=== PATIENT | female | born 1980 | race Caucasian/White ===

== ENCOUNTER 2024-10-17 14:44 | Emergency (ER) | payer OTHER, SELFPAY ==
[2024-10-17 14:57] VITALS: BP 121/76; PULSE 100; RESP 14; TEMP 36.7; O2SAT 100; BMI 29.2
[2024-10-17 15:46] LABS: Add Urine Microscopic? NO
[2024-10-17 15:49] LABS: Basophils # 0.1 10^3/uL (0.0-0.1); Basophils % 0.6 %; Eosinophils # 0.1 10^3/uL (0.0-0.8); Eosinophils % 1.2 %; Hematocrit 40.8 % (36-47); Lymphocytes # 1.8 10^3/uL (0.8-4.8); Lymphocytes % 18.3 %; Mean Corpuscular HGB Conc 33.6 g/dL (30-55); Mean Corpuscular Hemoglobin 29.8 pg (27-33); Mean Corpuscular Volume 88.7 fl (85-98); Mean Platelet Volume 10.5 fL (7.4-10.4); Monocytes % 10.4 %; Neutrophils # 6.84 10^3/uL (1.8-7.7); Neutrophils % 68.2 %; Nucleated Red Blood Cells % 0 %; Platelet Count 367 10^3/cmm (157-399); Red Cell Distribution Width 12.7 % (12.1-15.1); White Blood Count 10.02 10^3/uL (3.29-11.43)
[2024-10-17 15:52] LABS: HCG, Serum Qual Negative (Negative)
[2024-10-17 15:55] LABS: Add Urine Culture? No; Bilirubin Urine Neg (Negative); Blood Urine Neg (Negative); Glucose Urine UA Norm (Normal); Ketones Urine Negative (Negative); Leukocyte Esterase Urine Negative (Negative); Nitrate Urine Negative (Negative); Protein Urine Neg (Negative); Specific Gravity, Urine 1.024 (1.005-1.030); Urine Appearance Clear (CLEAR); Urine Color Yellow (Yellow)
[2024-10-17 15:56] LABS: Charge for UA Resulting for Rev
[2024-10-17 15:58] LABS: Alanine Aminotransferase 41 U/L (0-33); Albumin Level 4.2 g/dL (3.5-5.2); Alkaline Phosphatase 77 U/L (35-105); Anion Gap 13.9 (5-19); Aspartate Amino Transferase 36 U/L (0-32); Blood Urea Nitrogen 8 mg/dL (6-20); Calcium 9.1 mg/dL (8.5-10.5); Carbon Dioxide 27 mmol/L (22-29); Chloride 100 mmol/L (98-107); Creatinine Clr Calc Pharmacy 136.7277; Globulin 3.5 g/dL (1.3-4.6); Glomerular Filtration Rate 135.3 mL/min (90-130); Glucose 97 mg/dL (65-115); Lipase 22 U/L (13-60); Osmolality Calculated 282 mOsm/kg (285-295); Potassium 3.9 mmol/L (3.5-5.1); Sodium 137 mmol/L (136-145); Total Bilirubin 0.3 mg/dL (0.15-1.2); Total Protein 7.7 g/dL (6.6-8.7)
--- NOTE | 2024-10-17 16:04 | ED_ITS ---
HPI - Abdominal Pain 2 General: Chief Complaint: Abdominal Pain Stated Complaint: abd pain Time Seen by Provider: 10/17/24 15:29 History of Present Illness: 44-year-old female presents emergency ro om complaining of abdominal pain that began last night is worsened throughout the day. She relates also it is periumbilical. It is worse when she is standing she also notices she has some mild discomfort with urination she did not notice any hematuria or or specific dysuria but the abdominal pain worsens. She also has worsening abdominal pain with any attempted bowel movement or flatus. She previously had a hysterectomy and appendectomy. She had some intravascular coils placed for problems with her ovaries. She is also noted onset of diarrhea for the last 3 to 4 days. She has not had any bloody diarrhea. No recent antibiotics. Associated Symptoms: Reports diarrhea; Denies chills, dysuria and fever(s) Related Data Previous Rx's ?Medication ?Instructions ?Recorded hydrocodone 5 mg-acetaminophen 325 1 tab PO Q6H PRN pa in #10 tabs 10/17/24 mg tablet promethazine 25 mg tablet 25 mg PO Q6H PRN nausea and 10/17/24 vomiting #20 tabs Allergies Allergy/AdvReac Type Severity Reaction Status Date / Time doxycycline Allergy ALGY-Hives Verified 10/17/24 15:01 Penicillins Allergy ALGY-Hives Verified 10/17/24 15:01 tramadol Allergy ADR-Vomitin Verified 10/17/24 15:01 g Review of Systems 2 Const: Denies: fever(s) or chills Card: Denies: chest pain Resp: Denies: dyspnea GI: Reports: diarrhea; Denies: abdominal pain : Denies: dysuria, urinary frequency or urinary urgency Musc: Denies: neck pain or back pain Skin/Breast: Denies: rash Physical Exam 2 Const: GENERAL APPEARANCE: cooperative ORIENTATION/CONSCIOUSNESS: Yes awake, Yes oriented to person, Yes oriented to place and Yes oriented to time HENMT: COMMON NORMALS: normocephalic, atraumatic and hearing grossly normal bilaterally HEAD & SCALP: normocephalic and atraumatic Resp: COMMON NORMALS: normal respiratory effort, No retractions, No use of accessory muscles and clear to auscultation bilaterally AUSCULTATION: clear to auscultation bilaterally Cardio: COMMON NORMALS: regular rate, regular rhythm and No murmurs present (Cardio) RATE: regular rate RHYTHM: regular rhythm GI: AUSCULTATION: Yes Hypoactive bowel sounds present PALPATION: Yes Tenderness to palpation present (GI) (Periumbilical) and No Guarding due to palpation present (GI) Extremity: COMMON NORMALS: normal to inspection, capillary refill normal, no clubbing, cyanosis or edema, no calf tenderness and no pedal edema Neuro: SENSORIUM/ORIENTATION: Yes oriented to person, Yes oriented to place and Yes oriented to time Skin: COMMON NORMALS: no rashes or lesions noted GENERAL SKIN EXAM: no rashes or lesions noted Course 2 Vital Signs: Vital signs: Vital Signs Temperature 98.0 F 10/17/24 14:57 Pulse Rate 88 10/17/24 18:37 Respiratory Rate 14 10/17/24 14:57 Blood Pressure 92/60 10/17/24 18:37 Pulse Oximetry 97 10/17/24 18:37 Oxygen Delivery Me thod Room Air 10/17/24 17:24 MDM - Abdominal Pain Medical Decision Making Labs and imaging reviewed no leukocytosis CT did not show any acute pathology discharged home with nonspecific abdominal pain no emergent findings noted on labs or imaging clear liquid diet antiemetics pain medications return if has further problems or change in symptoms Medical Records I reviewed the patient's medical records. Lab Data I reviewed the patient's lab results. 10/17/24 15:27 10/17/24 15:27 Labs/Radiology: Radiology Impressions Abdomen/Pelvis CT 10/17/24 16:10 IMPRESSION: 1. No bowel obstruction or inflammatory process associated with the bowel. 2. No free air or significant free fluid in the abdomen or pelvis. 3. No evidence of appendicitis. Laboratory Results WBC 10.02 10^3/uL (3.29-11.43) 10/17/24 15:27 RBC 4.60 10^6/uL (3.85-5.65) 10/17/24 15:27 Hgb 13.70 g/dL (11.27-16.99) 10/17/24 15:27 Hct 40.8 % (36-47) 10/17/24 15:27 MCV 88.7 fl (85-98) 10/17/24 15: MCH 29.8 pg (27-33) 10/17/24 15: MCHC 33.6 g/dL (30-55) 10/17/24 15: RDW 12.7 % (12.1-15.1) 10/17/24 15: Plt Count 367 10^3/cmm (157-399) 10/17/24 15: MPV 10.5 fL (7.4-10.4) H 10/17/24 15:27 Neut % (Auto) 68.2 % 10/17/24 15:27 Lymph % (Auto) 18.3 % 10/17/24 15:27 Collier % (Auto) 10.4 % 10/17/24 15:27 Eos % (Auto) 1.2 % 10/17/24 15: Baso % (Auto) 0.6 % 10/17/24: Neut # (Auto) 6.84 10^3/uL (1.8-7.7) 10/17/24 15:27 Lymph # (Auto) 1.8 10^3/uL (0.8-4.8) 10/17/24 15:27 Collier # (Auto) 1.0 10^3/uL (0.2-0.9) H 10/17/24 15:27 Eos # (Auto) 0.1 10^3/uL (0.0-0.8) 10/17/24 15:27 Baso # (Auto) 0.1 10^3/uL (0.0-0.1) 10/17/24 15: Nucleated RBC % (auto) 0 % 10/17/24 15: Nucleated RBCs # 0.0 /100WBC 10/17/24 15: Sodium 137 mmol/L (136-145) 10/17/24 15: Potassium 3.9 mmol/L (3.5-5.1) 10/17/24 15: Chloride 100 mmol/L (98-107) 10/17/24 15: Carbon Dioxide 27 mmol/L (22-29) 10/17/24 15: Anion Gap 13.9 (5-19) 10/17/24 15: BUN 8 mg/dL (6-20) 10/17/24 15: Creatinine 0.5 mg/dL (0.5-0.9) 10/17/24 15:27 GFR Calculation 135.3 mL/min (90-130) H 10/17/24 15: Glucose 97 mg/dL (65-115) 10/17/24 15: Calculated Osmolality 282 mOsm/kg (285-295) L 10/17/24 15: Calcium 9.1 mg/dL (8.5-10.5) 10/17/24 15: Total Bilirubin 0.3 mg/dL (0.15-1.2) 10/17/24 15: AST 36 U/L (0-32) H 10/17/24 15: ALT 41 U/L (0-33) H 10/17/24 15: Alkaline Phosphatase 77 U/L (35-105) 10/17/24 15: Total Protein 7.7 g/dL (6.6-8.7) 10/17/24 15: Albumin 4.2 g/dL (3.5-5.2) 10/17/24 15: Globulin 3.5 g/dL (1.3-4.6) 10/17/24 15: Lipase 22 U/L (13-60) 10/17/24 15:27 HCG, Qual Negative (Negative) 10/17/24 15: Urine Color Yellow (Yellow) 10/17/24 15:33 Urine Appearance Clear (CLEAR) 10/17/24 15:33 Urine pH 8.0 (5-7) A 10/17/24 15:33 Ur Specific [place] 1.024 (1.005-1.030) 10/17/24 15:33 Urine Protein Neg (Negative) 10/17/24 15:33 Urine Glucose (UA) Norm (Normal) 10/17/24 15:33 Urine Ketones Negative (Negative) 10/17/24 15:33 Urine Blood Neg (Negative) 10/17/24 15:33 Urine Nitrate Negative (Negative) 10/17/24 15:33 Urine Bilirubin Neg (Negative) 10/17/24 15:33 Urine Urobilinogen 1.0 mg/dL (Negative) 10/17/24 15:33 Ur Leukocyte Esterase Negative (Negative) 10/17/24 15: Amorphous Sediment Not Reportable 10/17/24 15:33 All radiology interpretation(s) finalized by discharge Discharge Plan Discharge Patient Disposition: Home Clinical Impression: Abdominal pain Condition: Stable Prescriptions: New hydrocodone-acetaminophen 5-325 mg tablet 1 tab PO Q6H PRN (Reason: pain) Qty: 10 0RF promethazine 25 mg tablet 25 mg PO Q6H PRN (Reason: nausea and vomiting) Qty: 20 0RF Discharge Orders: Discharge ED (Routine); Ordered 10/17/24 Ordered By: Tree Nichols Referrals: Kenney Vázquez DO [Primary Care Provider] Discharge Diet: Advance as tolerated Discharge Activity: Increase activity as tolerated Patient Instructions: Abdominal Pain (ED), Opioid Safety, Pain Management Activity Restrictions/Additional Instructions: Thank you for choosing [facility] for your healthcare needs today. It is very important that you follow up as instructed or that you return to the Emergency Department should you have concerns or if your condition changes or worsens in any way. You were seen for abdominal pain. CT did not show any significant acute pathology. Chemistries urine and white count were also negative. Recommend clear liquid diet for the next 24 to 48 hours and advance as tolerated. You are given hydrocodone for pain promethazine for nausea and vomiting. Return if you have further problems. Print Language: Frisian Coding Level of Care Code ED Guest Services Officer for [employer]
--- NOTE | 2024-10-17 16:10 | CTR_ITS ---
PROCEDURE INFORMATION: Exam: CT Abdomen And Pelvis With Contrast Exam date and time: 10/17/2024 4:27 PM Age: 44 years old Clinical indication: Abdominal pain; Prior surgery; Surgery date: 6+ months; Surgery type: Abd pain; Additional info: Abd pain TECHNIQUE: Imaging protocol: Computed tomography of the abdomen and pelvis with contrast. Radiation optimization: All CT scans at this facility use at least one of these dose optimization techniques: automated exposure control; mA and/or kV adjustment per patient size (includes targeted exams where dose is matched to clinical indication); or iterative reconstruction. Contrast material: OMNI 350; Contrast volume: 100 ml; Contrast route: INTRAVENOUS (IV); COMPARISON: No relevant prior studies available. RADIATION DOSE METRICS: Total DLP (mGy-cm): 622.14 FINDINGS: Liver: Normal. No mass. Gallbladder and biliary ducts: The gallbladder is absent. Pancreas: Normal. No ductal dilation. Spleen: Normal. No splenomegaly. Adrenal glands: Normal. No mass. Kidneys and ureters: Normal. No hydronephrosis. Stomach and bowel: Unremarkable. No obstruction. No mucosal thickening. Appendix: No evidence of appendicitis. Intraperitoneal space: Unremarkable. No free air. No significant fluid collection. Vasculature: Unremarkable. No abdominal aortic aneurysm. Lymph nodes: Unremarkable. No enlarged lymph nodes. Urinary bladder: Unremarkable as visualized. Reproductive: Unremarkable as visualized. Bones/joints: Unremarkable. No acute fracture. Soft tissues: Unremarkable. CT/CT abdomen pelvis w con* [id number] IMPRESSION: 1. No bowel obstruction or inflammatory process associated with the bowel. 2. No free air or significant free fluid in the abdomen or pelvis. 3. No evidence of appendicitis.
[2024-10-17] MEDS: ketorolac 30 mg/mL INJ IVP (16:14)
[2024-10-17] MEDS: prochlorperazine 10 mg/2 mL Inj IVP (16:15)
[2024-10-17 16:26] VITALS: BP 113/83; PULSE 100; O2SAT 98
[2024-10-17 17:24] VITALS: BP 105/66; PULSE 76; O2SAT 98
[2024-10-17] MEDS: sodium chloride 0.9% 1,000 ML 999 ML IV (18:07)
[2024-10-17 18:37] VITALS: BP 92/60; PULSE 88; O2SAT 97
== END 2024-10-17 18:41 | disposition home or self-care (01) ==
PROVIDERS: Emergency Provider Family Medicine; PCP Family Medicine
DX: R10.9 Unspecified abdominal pain (principal)
CPT/HCPCS: 36415; 74177; 80053; 81003; 83690; 84703; 85025; 96374; 96375; 99285; J0780; J1885; J7030